=== PATIENT | male | born 1950 | race Caucasian/White ===

== ENCOUNTER 2019-01-17 12:37 | Emergency (ER) | payer OTHER ==
[~2019-01-17] VITALS: Ht 162.6 cm; Wt 80.5 kg
[2019-01-17] MEDS ORDERED: famotidine/PF 10 mg/ml inj IV ONE (13:25)
[2019-01-17] MEDS ORDERED: methylPREDNISolone sod succ 125mg/2ml vial IV ONE (13:25)
[2019-01-17] MEDS ORDERED: diphenhydrAMINE 50 mg/ml inj IV ONE (13:25)
[2019-01-17] MEDS ORDERED: tranexamic acid 100mg/ml inj. IV ONE (13:25)
[2019-01-17] MEDS ORDERED: PRED20TA PO (14:42)
[2019-01-17 15:04] VITALS: BP 150/98
== END 2019-01-17 15:09 | disposition home or self-care (01) ==
LOC: ER 12:43
DX: R22.0 Localized swelling, mass and lump, head (principal); T46.4X5A Adverse effect of angiotensin-converting-enzyme inhibitors, initial encounter; I10 Essential (primary) hypertension; Z88.8 Allergy status to other drugs, medicaments and biological substances; Z79.899 Other long term (current) drug therapy; Y92.89 Other specified places as the place of occurrence of the external cause
CPT/HCPCS: 96374; 96375; 99283; J1200; J2930; J3490